=== PATIENT | female | born 1950 | race Caucasian/White ===

== ENCOUNTER 2021-05-12 11:03 | Emergency (ER) | payer MEDICARE, OTHER, SELFPAY ==
[2021-05-12 11:14] VITALS: BP 136/74; PULSE 91; RESP 16; TEMP 36.2; O2SAT 100
--- NOTE | 2021-05-12 11:16 | ED.FEMALEGU ---
HPI - Female Genitourinary General Chief complaint: Urogenital-Female Stated complaint: UTI Time Seen by Provider: 05/12/21 11:17 Source: patient and RN notes reviewed Mode of arrival: ambulatory Limitations: no limitations History of Present Illness HPI Narrative: 7-year-old female presents to the [facility] with plaints of I think I have a UTI. Patient states that she saw her urologist on Thursday and was refitted for a pessary. Was told to urinate and then self caths. States that she caths night, Thursday morning and Thursday night was having burning, frequency and just feeling off. Had taken some Azo which helped on Thursday. Patient states she will today and just was not feeling right. Had burning, urgency and frequency. Has a history of high cholesterol, hypertension History of left knee surgery. Neurologist at [facility] elicited complaint: UTI Related Data Home Medications Medication Instructions Recorded Confirmed estradiol mcg VAGINAL 05/12/21 evolocumab [Repatha SureClick] mg SUBCUT 05/12/21 ezetimibe mg 05/12/21 ipratropium bromide INTRANASAL 05/12/21 lisinopril-hydrochlorothiazide tablet 05/12/21 meloxicam 05/12/21 metoprolol succinate PO 05/12/21 Allergies Allergy/AdvReac Type Severity Reaction Status Date / Time Penicillins Allergy Mild Verified 07/03/09 14:43 TETANUS & DIPHTHERIA Allergy Mild Uncoded 07/03/09 14:44 TOX,ADULT Review of Systems Review of Systems: All systems reviewed & are unremarkable except as noted in HPI and below Constitutional: Constitutional: Reports no additional constitutional complaints, Denies chills and Denies fatigue Eyes: Eyes: Reports no additional eye complaints ENT: Reports system reviewed and no additional complaints, except as documented Cardiovascular: Cardiovascular: Reports no additional cardiovascular complaints and Denies chest pain Respiratory: Respiratory: Reports no additional respiratory complaints, Denies cough and Denies dyspnea Gastrointestinal: Gastrointestinal: Reports no additional gastrointestinal complaints, Denies abdominal pain, Denies nausea and Denies vomiting Genitourinary: Genitourinary: Reports as per HPI, Reports nocturia, Reports dysuria and Denies flank pain Musculoskeletal: Musculoskeletal: Reports no additional musculoskeletal complaints Integumentary/Breasts: Skin/Breast: Reports system reviewed and no additional complaints, except as docu Neurologic: Reports system reviewed and no additional complaints, except as documented Psychiatric: Psychiatric: Reports no additional psychiatric complaints Allergic/Immunologic: Allergic/Immunologic: Reports no additional allergic/immunologic complaints PMFSH Past Medical History Medical History (Updated 05/12/21 @ 16:24 by Emma Mathews) High cholesterol Hypertension Surgical History Surgical History (Updated 05/12/21 @ 16:24 by Emma Mathews) H/O left knee surgery Social History Social History (Updated 05/12/21 @ 16:24 by Emma Mathews) Gender identity (if verbalized by the patient): Female Comments At the time of my signature, I reviewed and agree with the nursing past medical, surgical, social, and family history. There is no relevant family history pertinent to the patient complaint. Exam Const: General: healthy appearing, no acute distress and alert Nutritional Appearance: well nourished Orientation/consciousness: patient oriented x3 Limitations: no limitations HENMT: Head: normal to inspection Eyes: Conjunctivae: conjunctivae normal Pupils: Equal, round and reactive pupils present Neck: Neck: normal visual inspection, no lymphadenopathy and no meningeal signs Chest: Chest palpation & inspection: normal inspection of the chest Resp: Effort & Inspection: normal respiratory effort and no use of accessory muscles Auscultation: clear to auscultation bilaterally, no crackles, no rales, no rhonchi and no wheezes
== END 2021-05-12 11:30 | disposition home or self-care (01) ==
PROVIDERS: Emergency Provider Nurse Practitioner
DX: N30.01 Acute cystitis with hematuria (principal); E78.00 Pure hypercholesterolemia, unspecified; I10 Essential (primary) hypertension
CPT/HCPCS: 81003; 87086; 99213; G0463

== ENCOUNTER 2021-05-14 10:07 | Emergency (ER) | payer MEDICARE, OTHER, SELFPAY ==
[2021-05-14 10:16] VITALS: BP 123/72; PULSE 84; RESP 16; TEMP 36.2; O2SAT 99
--- NOTE | 2021-05-14 10:21 | ED.GENADULT ---
HPI - General Adult General Chief complaint: Allergic Reaction Stated complaint: neck stiffness/vomiting/Dizziness Time Seen by Provider: 05/14/21 10:21 Source: patient, RN notes reviewed and old records reviewed Mode of arrival: ambulatory Limitations: no limitations History of Present Illness HPI narrative: 70-year-old [facility] with complaints of generalized neck discomfort, vomiting yesterday x1, nausea, dizziness that started after she started taking the Bactrim. States as the day progresses her symptoms have gotten better. States she had a similar episode when she took meloxicam several months ago. Patient denies any visual changes. Denies any chest pain or shortness of breath. Denies any abdominal pain. Related Data Home Medications Medication Instructions Recorded Confirmed estradiol mcg VAGINAL 05/12/21 evolocumab [Repatha SureClick] mg SUBCUT 05/12/21 ezetimibe mg 05/12/21 ipratropium bromide INTRANASAL 05/12/21 lisinopril-hydrochlorothiazide tablet 05/12/21 metoprolol succinate PO 05/12/21 Allergies Allergy/AdvReac Type Severity Reaction Status Date / Time meloxicam Allergy Intermediate Dizziness Verified 05/14/21 10:41 sulfamethoxazole Allergy Intermediate Dizziness Verified 05/14/21 10:41 [From Bactrim] trimethoprim [From Bactrim] Allergy Intermediate Dizziness Verified 05/14/21 10:41 Penicillins Allergy Mild Rash Verified 05/14/21 10:41 TETANUS & DIPHTHERIA Allergy Mild Rash Uncoded 05/14/21 10:41 TOX,ADULT Review of Systems Review of Systems: All systems reviewed & are unremarkable except as noted in HPI and below Constitutional: Constitutional: Reports no additional constitutional complaints, Denies chills and Denies fever(s) Eyes: Eyes: Reports no additional eye complaints ENT: Reports system reviewed and no additional complaints, except as documented Cardiovascular: Cardiovascular: Reports no additional cardiovascular complaints and Denies chest pain Respiratory: Respiratory: Reports no additional respiratory complaints Gastrointestinal: Gastrointestinal: Reports no additional gastrointestinal complaints Genitourinary: Genitourinary: Reports no additional female genitourinary complaints Musculoskeletal: Musculoskeletal: Reports no additional musculoskeletal complaints Integumentary/Breasts: Skin/Breast: Reports system reviewed and no additional complaints, except as docu Neurologic: Reports as per HPI, Reports dizziness, Denies focal weakness and Denies numbness Psychiatric: Psychiatric: Reports no additional psychiatric complaints Allergic/Immunologic: Allergic/Immunologic: Reports no additional allergic/immunologic complaints, Denies lip swelling, Denies throat swelling, Denies tongue swelling and Denies wheezing PMFSH Past Medical History Medical History High cholesterol Hypertension Surgical History Surgical History H/O left knee surgery Social History Social History Gender identity (if verbalized by the patient): Female Comments At the time of my signature, I reviewed and agree with the nursing past medical, surgical, social, and family history. There is no relevant family history pertinent to the patient complaint. Exam Const: General: healthy appearing, no acute distress and alert Nutritional Appearance: well nourished Orientation/consciousness: patient oriented x3 Limitations: no limitations HENMT: Head: normal to inspection Eyes: Conjunctivae: conjunctivae normal Pupils: Equal, round and reactive pupils present Neck: Neck: normal visual inspection, no lymphadenopathy and no meningeal signs Chest: Chest palpation & inspection: normal inspection of the chest Resp: Effort & Inspection: normal respiratory effort and no use of accessory muscles Auscultation: clear to auscultat
== END 2021-05-14 10:49 | disposition home or self-care (01) ==
PROVIDERS: Emergency Provider Nurse Practitioner
DX: M43.6 Torticollis (principal); R11.2 Nausea with vomiting, unspecified; R42 Dizziness and giddiness; T36.8X5A Adverse effect of other systemic antibiotics, initial encounter; E78.00 Pure hypercholesterolemia, unspecified; I10 Essential (primary) hypertension
CPT/HCPCS: 99213; G0463

== ENCOUNTER 2024-03-07 08:11 | Emergency (ER) | payer MEDICARE, BC, SELFPAY ==
[2024-03-07] VITALS (10 sets, daily range): BP systolic 119–150; BP diastolic 62–85; PULSE 77–101; RESP 13–20; TEMP 36.4–36.6; O2SAT 97–100
--- NOTE | ~2024-03-07 | CT_ITS ---
EXAMINATION: CT abdomen pelvis wo con DATE: 03/07/2024 09:37 INDICATION: Blood in stools TECHNIQUE: Computed tomography (CT) of the abdomen and pelvis was performed without intravenous contr ast. Automated exposure control and iterative reconstruction technique were employed. The dose-length product was 459.52 mGy-cm. COMPARISON: None FINDINGS: Lung bases are clear. Heart size normal. Atherosclerotic coronary artery calcification. No pericardia l or pleural effusion. Cholecystectomy clips at gallbladder fossa. Liver, spleen, pancreas, right kid vicki and bilateral adrenal glands are normal. 8 mm hyperdense proteinaceous/hemorrhagic cyst at the pe riphery of the left kidney. Compatible diverticula along the sigmoid colon without adjacent compression into suggest diverticulit is. Bowels including the appendix are otherwise normal. Bladder is normal. The uterus is not identifi ed and has likely been surgically resected. No free intraperitoneal gas or fluid. No pathologically e nlarged abdominal or pelvic lymphadenopathy. Moderate lower thoracic, severe lumbosacral and mild int ervening lumbar spondylosis. IMPRESSION: 1. No acute intra-abdominal/intrapelvic process. Reviewed, dictated and finalized at location A.
--- NOTE | 2024-03-07 09:27 | ED.GIBLEED ---
HPI - GI Bleed General Chief complaint: GI Bleed Stated complaint: bloody stools Time Seen by Provider: 03/07/24 09:01 Source: patient and family Mode of arrival: ambulatory Limitations: no limitations History of Present Illness HPI Narrative: Pt is a 73-year-old female who presents to the ER with complaints of rectal bleeding. She reports the bleeding started this morning. Pt reports the bright red blood filled the toilet this morning when she had a bowel movement. She reports she has never had this happen to her before, but does have a history of a cholecystectomy and enterocele surgery within the last six months. Pt reports she takes Ibuprofen frequently for her arthritis pain, but does not take a daily aspirin. Yesterday she vomited with after breakfast but has not vomited since then nor has she eaten much. Pt endorses feeling bloated but denies abdominal pain with palpation. Since pt's cholecystectomy she endorses liquid stools, but reports they have recently started to be more formed. Pt reports she had a colonoscopy in October where they removed a polyp and the biopsy was negative. She denies chest pain, shortness of breath, dark red blood in stool or blood in emesis. Related Data Home Medications Medication Instructions Recorded Confirmed estradiol 10 mcg vaginal tablet mcg vaginal 05/12/21 evolocumab 140 mg/mL subcutaneous mg subcut 05/12/21 pen injector (Venita Mcknight) ezetimibe 10 mg tablet mg 05/12/21 ipratropium bromide 21 mcg (0.03 intranasal 05/12/21 %) nasal spray lisinopril 20 tablet 05/12/21 mg-hydrochlorothiazide 12.5 mg tablet metoprolol succinate 50 mg PO 05/12/21 tablet,extended release 24 hr Allergies Allergy/AdvReac Type Severity Reaction Status Date / Time meloxicam Allergy Intermediate Dizziness Verified 03/07/24 08:12 sulfamethoxazole Allergy Intermediate Dizziness Verified 03/07/24 08:12 [From Bactrim] trimethoprim [From Bactrim] Allergy Intermediate Dizziness Verified 03/07/24 08:12 Penicillins Allergy Mild Rash Verified 03/07/24 08:12 TETANUS & DIPHTHERIA Allergy Mild Rash Uncoded 03/07/24 08:12 TOX,ADULT Review of Systems Review of Systems: All systems reviewed & are unremarkable except as noted in HPI and below PMFSH Past Medical History Medical History High cholesterol Hypertension Surgical History Surgical History H/O left knee surgery Social History Social History Gender identity (if verbalized by the patient): Female Exam Narrative: GENERAL: Well-appearing, well-nourished and in no acute distress. CARDIAC: Regular rate and rhythm without murmurs, rubs or gallops. RESPIRATORY: Clear to auscultation bilaterally. No wheezes, rales or rhonchi. ABDOMEN: Soft, nontender, normoactive bowel sounds throughout, no guarding, no rebound. No masses appreciated. EXTREMITIES: Normal range of motion, no swelling, clubbing or other deformities. NEUROLOGICAL: Cranial nerves II through XII grossly intact, no focal deficits noted. Normal speech. SKIN: Warm, dry, normal color, no rashes, no lesions. Course Vital Signs Vital signs: Vital Signs Temperature 36.4 C 03/07/24 08:14 Pulse Rate 100 03/07/24 08:14 Respiratory Rate 15 03/07/24 08:14 Blood Pressure 150/79 H 03/07/24 08:14 Pulse Oximetry 98 03/07/24 08:14 Oxygen Delivery Room Air 03/07/24 08:14 Temperature 36.6 C 03/07/24 11:19 Pulse Rate 80 03/07/24 11:19 Respiratory Rate 15 03/07/24 11:19 Blood Pressure 119/78 03/07/24 11:19 Pulse Oximetry 98 03/07/24 11:19 Oxygen Delivery Room Air 03/07/24 08:14 MDM - GI Bleed MDM Narrative Medical decision making narrative: Pt is a 73-year-old female who presents to the ER with complaints of rectal bleeding. She r
[2024-03-07 09:32] LABS: Basophils Percent Auto 0.5 % (0.2-1.2); Eosinophils Absolute Auto 0.1 K/mm3 (0-0.3); Eosinophils Percent Auto 0.9 % (0-4.4); Hematocrit 42.5 % (37.0-47.0); Hemoglobin 14.1 g/dL (12.0-15.0); Immature Granulocyte Absolute 0.02 K/mm3 (0.00-0.031); Immature Granulocyte Percent A 0.3 % (0-0.5); Lymphocytes Absolute Auto 1.61 K/mm3 (0.9-3.2); Lymphocytes Percent Auto 20.7 % (18.3-44.2); Mean Corpuscular HGB Conc 33.2 g/dl (32-36); Mean Corpuscular Hemoglobin 30.4 pg (26-34); Mean Corpuscular Volume 91.6 fl (80-100); Mean Platelet Volume 9.7 fl (7.4-10.4); Monocytes Absolute Auto 0.8 K/mm3 (0.1-0.6); Monocytes Percent Auto 9.8 % (2.6-8.5); Neutrophils Absolute Auto 5.3 K/mm3 (1.3-6.7); Neutrophils Percent Auto 67.8 % (45.5-73.1); Platelet Count Result 259 k/mm3 (150-375); Red Blood Count 4.64 M/mm3 (4.2-5.4); Red Cell Distribution Width 12.3 % (11.5-14.5); White Blood Count 7.8 K/mm3 (4.5-10.0)
[2024-03-07] MEDS: FAMOTIDINE 20 MG/2 ML VIAL IV PUSH (09:43)
[2024-03-07] MEDS: SODIUM CHLORIDE 0.9% IV 1,000 ML 999 ML IV CONT (09:43)
[2024-03-07 09:44] LABS: Alanine Aminotransferase 24 U/L (6-35); Albumin Level 4.8 g/dL (3.5-5.1); Alkaline Phosphatase 63 U/L (38-126); Anion Gap 13 mmol/L (4-12); Aspartate Amino Transferase 36 U/L (14-36); Bilirubin,Total 0.9 mg/dL (0.2-1.3); Blood Urea Nitrogen 22 mg/dL (7-17); Calcium 9.4 mg/dL (8.4-10.2); Carbon Dioxide 28 mmol/L (22-30); Chloride 96 mmol/L (98-107); Estimated CRCL calculation 44 ml/min; Estimated Glomerular Filt Rate > 60; Glucose 103 mg/dL (65-110); Lipase 84 U/L (23-300); Partial Thromboplastin Time 27.3 Seconds (22.3-36.8); Potassium 3.8 mmol/L (3.4-5.0); Prothrombin Time 14.1 Seconds (11.1-14.7); Sodium 137 mmol/L (137-145)
[2024-03-07] MEDS: PANTOPRAZOLE SODIUM IV 80 MG in SODIUM CHLORIDE 0.9% IV 500 ML 50 MG IV CONT (10:12)
[2024-03-07 11:18] LABS: Add Urine Microscopic? YES; Appearance Urine Clear (Clear); Bacteria Urine 1+ /hpf; Bilirubin Urine Negative (Negative); Blood Urine Negative (Negative); Color Urine Yellow (Yellow); Glucose Urine UA Negative (Negative); Ketones Urine Negative (Negative); Leukocyte Esterase Ur 3+ LEU/UL (Negative); Nitrate Urine Negative (Negative); Non Pathogenic Casts 0-2; Protein Urine Negative (Negative); RBC Urine 0-2 /hpf (0-2); Specific Grav Ur 1.008 (1.001-1.035); Squamous Epithelial Cell Urine Few /hpf (Few); Urobilinogen Urine 0.2 mg/dL (<2.0); WBC Urine 21-50 /hpf (0-3)
== END 2024-03-07 11:59 | disposition home or self-care (01) ==
PROVIDERS: Emergency Provider Registered Nurse
DX: N39.0 Urinary tract infection, site not specified (principal); K64.9 Unspecified hemorrhoids; I10 Essential (primary) hypertension; E78.5 Hyperlipidemia, unspecified
CPT/HCPCS: 36415; 74176; 80053; 81001; 83690; 85025; 85610; 85730; 86850; 86900; 86901; 87086; 96361; 96365; 96366; 96375; 99284; J2470; J7030; J7040